=== PATIENT | female | born 1970 | race Asian ===

== ENCOUNTER 2019-07-23 18:53 | Emergency (ER) | payer MEDICAID ==
[~2019-07-23] VITALS: Ht 157.5 cm; Wt 59.0 kg
[~2019-07-23 18:53] MED LIST: HYDR25TA6 PO
[2019-07-23 19:47] LABS: ALBUMIN 3.8 g/dL (3.4-5.0); ANION GAP 5 mmol/L (5-15); CALCIUM 9.1 mg/dL (8.5-10.1); CHLORIDE 106 mmol/L (98-107)
[2019-07-23 19:49] LABS: BASOPHILS # (AUTO) 0.02 x10^3/uL (0-0.1); BASOPHILS % (AUTO) 0 % (0-1); EOSINOPHILS # (AUTO) 0.25 x10^3/uL (0-0.4); EOSINOPHILS % (AUTO) 5 % (1-7); LYMPHOCYTES # (AUTO) 1.35 x10^3/uL (1-3.4); LYMPHOCYTES % (AUTO) 25 % (22-44); MD NO; MEAN CORPUSCULAR HEMOGLOBIN 30.2 pg (27.0-34.8); MEAN CORPUSCULAR HGB CONC 32.9 g/dL (32.4-35.8); MEAN CORPUSCULAR VOLUME 91.8 fL (80-100); MEAN PLATELET VOLUME 8.4 fL (7.4-10.4); MONOCYTES # (AUTO) 0.34 x10^3/uL (0.2-0.8); MONOCYTES % (AUTO) 6 % (2-9); NEUTROPHILS # (AUTO) 3.41 x10^3/uL (1.8-6.8); NEUTROPHILS % (AUTO) 63 % (42-75); PLATELET COUNT 290 x10^3/uL (130-400); RED BLOOD COUNT 4.65 x10^6/uL (3.82-5.3); RED CELL DISTRIBUTION WIDTH 13.1 % (9.6-15.2)
[2019-07-23 19:52] LABS: ALANINE AMINOTRANSFERASE 37 U/L (12-78); ALKALINE PHOSPHATASE 71 U/L (45-117); BILIRUBIN,TOTAL 0.2 mg/dL (0.2-1.0); CREATININE 1.11 mg/dL (0.55-1.02); TOTAL PROTEIN 7.8 g/dL (6.4-8.2)
--- NOTE | 2019-07-23 22:32 | NUR ---
Pt to room at this time.
[2019-07-23] MEDS ORDERED: HYDROCHLOROTHIAZIDE 25 MG TABLET PO ONE (23:00)
[2019-07-23 23:07] VITALS: BP 111/73
== END 2019-07-23 23:49 | disposition home or self-care (01) ==
LOC: ED 19:40
DX: R10.11 Right upper quadrant pain (principal); R11.0 Nausea; Z76.0 Encounter for issue of repeat prescription
CPT/HCPCS: 36415; 80053; 83690; 85025; 93005; 99284

== ENCOUNTER 2019-11-29 16:48 | Outpatient (CLI) | payer MEDICAID | END 2019-11-29 23:59 | disposition home or self-care (01) | LOC: LAB 16:48 | PROVIDERS: ATTEND Physician Assistant | DX: Z02.9 Encounter for administrative examinations, unspecified (principal) ==

== ENCOUNTER 2020-01-05 16:09 | Emergency (ER) | payer MEDICAID ==
[~2020-01-05] VITALS: Ht 157.5 cm; Wt 60.0 kg
[2020-01-05 16:17] VITALS: BP 120/74
== END 2020-01-05 16:41 | disposition home or self-care (01) ==
LOC: ED 16:25
DX: K08.89 Other specified disorders of teeth and supporting structures (principal)
CPT/HCPCS: 99283

== ENCOUNTER 2020-02-03 14:43 | Inpatient (IN) | payer MEDICAID ==
[~2020-02-03] VITALS: Ht 157.5 cm; Wt 56.4 kg
--- NOTE | 2020-02-03 15:03 | NUR ---
SPOKE WITH MANAGER DOCUMENTATION [id number]
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
[2020-02-03] MEDS ORDERED: ASPIRIN 81 MG TABLET CHEW ONE (15:54)
[2020-02-03 15:55] LABS: BASOPHILS # (AUTO) 0.02 x10^3/uL (0-0.1); BASOPHILS % (AUTO) 0 % (0-1); EOSINOPHILS # (AUTO) 0.12 x10^3/uL (0-0.4); EOSINOPHILS % (AUTO) 2 % (1-7); LYMPHOCYTES # (AUTO) 1.39 x10^3/uL (1-3.4); LYMPHOCYTES % (AUTO) 27 % (22-44); MD NO; MEAN CORPUSCULAR HEMOGLOBIN 29.8 pg (27.0-34.8); MEAN CORPUSCULAR HGB CONC 33.5 g/dL (32.4-35.8); MEAN CORPUSCULAR VOLUME 88.9 fL (80-100); MONOCYTES # (AUTO) 0.43 x10^3/uL (0.2-0.8); MONOCYTES % (AUTO) 8 % (2-9); NEUTROPHILS # (AUTO) 3.13 x10^3/uL (1.8-6.8); NEUTROPHILS % (AUTO) 61 % (42-75); PLATELET COUNT 265 x10^3/uL (130-400); RED BLOOD COUNT 4.26 x10^6/uL (3.82-5.3); RED CELL DISTRIBUTION WIDTH 13.2 % (9.6-15.2)
[2020-02-03] MEDS ORDERED: AZITHROMYCIN 500 MG in SODIUM CHLORIDE 0.9% 250 ML IV ONE (16:00)
[2020-02-03] MEDS ORDERED: CEFTRIAXONE PMX 1GM/50ML 50 ML IVPB ONE (16:00)
[2020-02-03] MEDS ORDERED: SODIUM CHLORIDE FLUSH 10ML SYR IVF ONE (16:00)
[2020-02-03] MEDS ORDERED: ASPIRIN 81 MG TABLET CHEW PO ONE (16:00)
--- NOTE | 2020-02-03 16:03 | NUR ---
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
--- NOTE | 2020-02-03 16:03 | NUR ---
Task rn:medicated per emar (only 81mg of ASA instead of 162mg) as patient took 81mg this am
[2020-02-03 16:08] LABS: ALANINE AMINOTRANSFERASE 24 U/L (12-78); ALBUMIN 3.5 g/dL (3.4-5.0); ANION GAP 5 mmol/L (5-15); CALCIUM 8.6 mg/dL (8.5-10.1); CHLORIDE 108 mmol/L (98-107); CREATININE 1.07 mg/dL (0.55-1.02)
[2020-02-03 16:13] LABS: ALKALINE PHOSPHATASE 57 U/L (45-117); BILIRUBIN,TOTAL 0.4 mg/dL (0.2-1.0); TOTAL PROTEIN 7.1 g/dL (6.4-8.2); TROPONIN I < 0.015 ng/mL (0.000-0.045)
[2020-02-03] MEDS ORDERED: CEFTRIAXONE PMX 1GM/50ML 50 ML ONE (16:35)
[2020-02-03] MEDS ORDERED: NITROGLYCERIN 0.4 MG BOTTLE (25 TABS) SL PRN (18:30)
[2020-02-03] MEDS ORDERED: NITROGLYCERIN 0.4 MG/SPRAY SL PRN (18:30)
[2020-02-03] MEDS ORDERED: ACETAMINOPHEN 325 MG TABLET PO PRN (18:30)
[2020-02-03] MEDS ORDERED: HEPARIN 5,000 UNITS/ML, 1ML SQ SCH (18:30)
[2020-02-03] MEDS ORDERED: LABETALOL 5MG/ML, 20ML IVPush PRN (18:30)
--- NOTE | 2020-02-03 18:45 | NUR ---
REPORT RECEIVED FROM YENNI COSBY.
[2020-02-03 18:59] LABS: TROPONIN I < 0.015 ng/mL (0.000-0.045)
--- NOTE | 2020-02-03 19:14 | NUR ---
PT UP TO BATHROOM WITH STEADY GAIT. MONITORING REAPPLIED, PT DENIES COUGH OR SORE THROAT, REPORTS SOME SOB.
[2020-02-03] MEDS ORDERED: NS + 20MEQ KCL 1,000 ML IV ONE (19:42)
[2020-02-03] MEDS: NS + 20MEQ KCL 1,000 ML IV SCH (19:56)
[2020-02-03] MEDS ORDERED: CEFTRIAXONE PMX 1GM/50ML 50 ML IV SCH (20:30)
[2020-02-03] MEDS ORDERED: HEPARIN 5,000 UNITS/ML, 1ML ONE (20:32)
--- NOTE | 2020-02-03 22:53 | NUR ---
PT PROVIDED MEAL AND WATER. DENIES FURTHER NEEDS AT THIS TIME.
--- NOTE | 2020-02-04 00:51 | NUR ---
PT UP TO BATHROOM WITH STEADY GAIT. MONITORING REAPPLIED, ADDITIONAL WATER AND BLANKET PROVIDED.
[2020-02-04 00:52] LABS: TROPONIN I < 0.015 ng/mL (0.000-0.045)
--- NOTE | 2020-02-04 02:51 | NUR ---
PT RESTING ON GURNEY WITH EYES CLOSED, RESPIRATIONS EVEN AND NONLABORED. CALL LIGHT WITHIN REACH. ALL SAFETY MEASURES IN PLACE. ROOM DIMMED FOR PT COMFORT.
[2020-02-04] MEDS ORDERED: HEPARIN 5,000 UNITS/ML, 1ML ONE (05:00)
[2020-02-04] MEDS: HEPARIN 5,000 UNITS/ML, 1ML SQ SCH ×3 (05:05→22:17)
--- NOTE | 2020-02-04 05:17 | NUR ---
PT MEDICATED PER MAR, LABS DRAWN BY LAB. PT DENIES FURTHER NEEDS AT THIS TIME. MONITORING IN PLACE, PT UPDATED ON POC.
[2020-02-04 05:29] LABS: BASOPHILS # (AUTO) 0.03 x10^3/uL (0-0.1); BASOPHILS % (AUTO) 1 % (0-1); EOSINOPHILS # (AUTO) 0.18 x10^3/uL (0-0.4); EOSINOPHILS % (AUTO) 3 % (1-7); LYMPHOCYTES # (AUTO) 1.98 x10^3/uL (1-3.4); LYMPHOCYTES % (AUTO) 35 % (22-44); MD NO; MEAN CORPUSCULAR HEMOGLOBIN 29.7 pg (27.0-34.8); MEAN CORPUSCULAR HGB CONC 33.2 g/dL (32.4-35.8); MEAN CORPUSCULAR VOLUME 89.7 fL (80-100); MEAN PLATELET VOLUME 7.9 fL (7.4-10.4); MONOCYTES # (AUTO) 0.44 x10^3/uL (0.2-0.8); MONOCYTES % (AUTO) 8 % (2-9); NEUTROPHILS # (AUTO) 2.95 x10^3/uL (1.8-6.8); NEUTROPHILS % (AUTO) 53 % (42-75); PLATELET COUNT 261 x10^3/uL (130-400); RED BLOOD COUNT 4.11 x10^6/uL (3.82-5.3); RED CELL DISTRIBUTION WIDTH 13.1 % (9.6-15.2)
[2020-02-04 05:36] LABS: ANION GAP 4 mmol/L (5-15); CHLORIDE 112 mmol/L (98-107)
[2020-02-04 05:41] LABS: CHOL/HDL RATIO 5.5; CHOLESTEROL, TOTAL 155 mg/dL (140-239); CREATININE 1.03 mg/dL (0.55-1.02); HDL CHOL % 18 % (28-40); HDL CHOLESTEROL (DIRECT) 28 mg/dL (40-60); LDL CHOLESTEROL,CALCULATED 52 mg/dL (54-169); LDL/HDL RATIO 1.9 (0.5-3.0); TRIGLYCERIDES 373 mg/dL (50-200); VLDL CHOLESTEROL 75 mg/dL (0-25)
--- NOTE | 2020-02-04 06:47 | NUR ---
REPORT TO YENNI FELIPE.
--- NOTE | 2020-02-04 06:48 | NUR ---
REPORT FROM OLLIE. PT RESTING.
[2020-02-04] MEDS: PANTOPRAZOLE 40MG TABLET PO SCH (07:30)
--- NOTE | 2020-02-04 07:30 | NUR ---
PT TRANSFERRED TO HOSPITAL BED. PT AMUBLATED TO BATHROOM , BRUSHED TEETH. HAS BEEN NPO FOR JUS SCAN THIS AM. PT DENIES CP OR SOB AT THIS TIME. VSS
--- NOTE | 2020-02-04 08:08 | NUR ---
DISCUSSED W DR GRAY THAT JUS SCAN WILL MOST LIKELY BE DONE IN AFTERNOON, MD MELANIA Resendez PT EATING LIGHT BREAKFAST.
[2020-02-04] MEDS ORDERED: PANTOPRAZOLE 20MG TABLET ONE (08:12)
[2020-02-04] MEDS ORDERED: ASPIRIN 81 MG TABLET CHEW ONE (08:12)
[2020-02-04] MEDS ORDERED: AZITHROMYCIN 250 MG TABLET ONE (08:12)
[2020-02-04] MEDS ORDERED: NS + 20MEQ KCL 1,000 ML IV ONE (08:13)
[2020-02-04] MEDS: NS + 20MEQ KCL 1,000 ML IV SCH ×2 (08:41→14:25)
[2020-02-04] MEDS: ASPIRIN 81 MG TABLET CHEW PO SCH (08:42)
[2020-02-04] MEDS: AZITHROMYCIN 250 MG TABLET PO SCH (08:42)
--- NOTE | 2020-02-04 08:50 | NUR ---
SPOKE W INTEPRETER TO DISCUSS POC FOR THE DAY INCLUDING MEDICATIONS, JUS SCAN IN AFTERNOON. PT EATING MEAL TRAY.
--- NOTE | 2020-02-04 10:03 | NUR ---
PT RESTING. CALL LIGHT IN REACH.
[2020-02-04] MEDS: HYDROCHLOROTHIAZIDE 25 MG TABLET PO SCH (10:24)
--- NOTE | 2020-02-04 11:49 | NUR ---
ICU NOT READY TO RECIEVE REPORT AT THIS TIME
--- NOTE | 2020-02-04 12:39 | NUR ---
REPORT TO BRANDIN
[2020-02-04] MEDS ORDERED: REGADENOSON 0.4 MG/5 ML SYRINGE ONE (13:33)
[2020-02-04 14:33] VITALS: BP 116/70
[2020-02-04] MEDS ORDERED: OMEP-110 PO (17:13)
[2020-02-04] MEDS ORDERED: METF500T17 PO (17:13)
[2020-02-04] MEDS ORDERED: NITR0.4T28 SL (17:19)
[2020-02-04] MEDS ORDERED: FAMO20TA7 PO (17:19)
[2020-02-04] MEDS ORDERED: PROM12.57 PO (17:19)
[2020-02-04] MEDS ORDERED: POTA10TA6 PO (17:19)
[2020-02-04] MEDS ORDERED: MV-M1TAB16 PO (17:19)
[2020-02-04] MEDS ORDERED: CEFTRIAXONE PMX 1GM/50ML 50 ML IV SCH (18:00)
[2020-02-04 20:19] VITALS: BP 109/61
[2020-02-05 00:46] VITALS: BP 130/67
[2020-02-05] MEDS: HEPARIN 5,000 UNITS/ML, 1ML SQ SCH (05:59)
[2020-02-05] MEDS ORDERED: NITROGLYCERIN 0.4 MG BOTTLE (25 TABS) SL PRN (06:30)
[2020-02-05] MEDS ORDERED: NITROGLYCERIN 0.4 MG/SPRAY SL PRN (06:30)
[2020-02-05] MEDS: ASPIRIN 81 MG TABLET CHEW PO SCH (07:35)
[2020-02-05] MEDS: PANTOPRAZOLE 40MG TABLET PO SCH (07:35)
[2020-02-05] MEDS: AZITHROMYCIN 250 MG TABLET PO SCH (07:35)
[2020-02-05] MEDS: HYDROCHLOROTHIAZIDE 25 MG TABLET PO SCH (07:35)
[2020-02-05 08:19] LABS: ANION GAP 5 mmol/L (5-15); CALCIUM 8.5 mg/dL (8.5-10.1); CHLORIDE 112 mmol/L (98-107); CREATININE 0.97 mg/dL (0.55-1.02)
[2020-02-05] MEDS ORDERED: FENOFIBRATE 145 MG TABLET PO SCH (09:00)
[2020-02-05] MEDS ORDERED: POTASSIUM CHLORIDE 20 MEQ TAB.ER.PRT PO ONE (09:30)
[2020-02-05] MEDS ORDERED: AMOX1TAB64 PO (10:25)
[2020-02-05] MEDS ORDERED: FENO145T19 PO (10:25)
[2020-02-05] MEDS ORDERED: AZIT250T89 PO (10:25)
[2020-02-05] MEDS ORDERED: ATORVASTATIN 40 MG TABLET PO SCH (21:00)
== END 2020-02-05 13:26 | disposition home or self-care (01) | DRG 195 ==
LOC: ED 16:37 → EDIP 17:19 → ICU 02-04 13:49
PROVIDERS: ADMIT Family Medicine; ATTEND Hospitalist
DX: J18.9 Pneumonia, unspecified organism (principal); E11.9 Type 2 diabetes mellitus without complications; E78.1 Pure hyperglyceridemia; I10 Essential (primary) hypertension; H92.02 Otalgia, left ear; R07.2 Precordial pain; R09.89 Other specified symptoms and signs involving the circulatory and respiratory systems; Z82.49 Family history of ischemic heart disease and other diseases of the circulatory system; Z79.84 Long term (current) use of oral hypoglycemic drugs
CPT/HCPCS: 36415; 71045; 78452; 80048; 80053; 80061; 82728; 83605; 83615; 84484; 85025; 87040; 87081; 87635; 93005; 93017; G0378; J0456; J0696; J1644; J2785; J3480; A9502; J7050

== ENCOUNTER 2020-04-05 18:37 | Emergency (ER) | payer MEDICAID ==
[~2020-04-05] VITALS: Ht 157.5 cm; Wt 56.0 kg
[~2020-04-05 18:37] MED LIST changes: +AMOX1TAB64 PO; +AZIT250T89 PO; +FAMO20TA7 PO; +FENO145T19 PO; +METF500T17 PO; +MV-M1TAB16 PO; +NITR0.4T28 SL; +OMEP-110 PO; +POTA10TA6 PO; +PROM12.57 PO
--- NOTE | 2020-04-05 18:54 | NUR ---
PT TO ED WITH X1 EPISODE OF BLOOD IN STOOL TODAY, DESCRIBES DARK RED. PT DENIES N/V/D. PT PLACED ON MONITORING, CALL LIGHT WITHIN REACH, ALL SAFETY MEASURES IN PLACE.
[2020-04-05 19:36] LABS: BASOPHILS # (AUTO) 0.03 x10^3/uL (0-0.1); BASOPHILS % (AUTO) 1 % (0-1); EOSINOPHILS # (AUTO) 0.12 x10^3/uL (0-0.4); EOSINOPHILS % (AUTO) 2 % (1-7); LYMPHOCYTES # (AUTO) 1.69 x10^3/uL (1-3.4); LYMPHOCYTES % (AUTO) 34 % (22-44); MD NO; MEAN CORPUSCULAR HEMOGLOBIN 29.4 pg (27.0-34.8); MEAN CORPUSCULAR HGB CONC 33.1 g/dL (32.4-35.8); MEAN CORPUSCULAR VOLUME 88.8 fL (80-100); MEAN PLATELET VOLUME 8.2 fL (7.4-10.4); MONOCYTES # (AUTO) 0.37 x10^3/uL (0.2-0.8); MONOCYTES % (AUTO) 8 % (2-9); NEUTROPHILS % (AUTO) 56 % (42-75); PLATELET COUNT 264 x10^3/uL (130-400); RED BLOOD COUNT 4.47 x10^6/uL (3.82-5.3); RED CELL DISTRIBUTION WIDTH 12.8 % (9.6-15.2)
[2020-04-05 19:45] LABS: INTERNATIONAL NORMALIZED RATIO 0.95 (0.93-1.1); PROTHROMBIN TIME 9.8 Seconds (9.6-11.5)
[2020-04-05 19:48] LABS: ALANINE AMINOTRANSFERASE 31 U/L (12-78); ALBUMIN 3.6 g/dL (3.4-5.0); ANION GAP 8 mmol/L (5-15); CALCIUM 8.6 mg/dL (8.5-10.1); CHLORIDE 109 mmol/L (98-107); CREATININE 1.11 mg/dL (0.55-1.02)
[2020-04-05 19:51] LABS: ALKALINE PHOSPHATASE 50 U/L (45-117); BILIRUBIN,TOTAL 0.2 mg/dL (0.2-1.0); TOTAL PROTEIN 7.1 g/dL (6.4-8.2)
--- NOTE | 2020-04-05 20:00 | NUR ---
PT UPDATED ON POC. MONITORING IN PLACE, CALL LIGHT WITHIN REACH.
--- NOTE | 2020-04-05 20:59 | NUR ---
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 ALL QUESTIONS ANSWERED AT THIS TIME.
--- NOTE | 2020-04-05 21:01 | NUR ---
RECTAL EXAM PERFOMRED WITH THIS RN IN ROOM.
[2020-04-05 21:17] VITALS: BP 125/70
== END 2020-04-05 21:20 | disposition home or self-care (01) ==
LOC: ED 19:45
DX: K62.5 Hemorrhage of anus and rectum (principal); K64.4 Residual hemorrhoidal skin tags; I10 Essential (primary) hypertension; E11.9 Type 2 diabetes mellitus without complications
CPT/HCPCS: 36415; 80053; 85025; 85610; 99283

== ENCOUNTER 2020-10-08 14:39 | Emergency (ER) | payer MEDICAID ==
[~2020-10-08] VITALS: Ht 157.5 cm; Wt 59.1 kg
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
--- NOTE | 2020-10-08 15:34 | NUR ---
Pt ambulating to bathroom, equal steady gait.
--- NOTE | 2020-10-08 15:38 | NUR ---
UA collected and tubed to lab.
--- NOTE | 2020-10-08 15:46 | NUR ---
Provided pt warm blanket.
[2020-10-08] MEDS ORDERED: MAALOX/HYOSCYAMINE/LIDOCAINE 45 ML BTL PO ONE (16:00)
[2020-10-08 16:16] LABS: MICROSCOPIC INDICATED
--- NOTE | 2020-10-08 16:17 | NUR ---
Lab at bedside.
[2020-10-08] MEDS ORDERED: MAALOX/HYOSCYAMINE/LIDOCAINE 45 ML BTL ONE (16:22)
[2020-10-08 16:33] LABS: BASOPHILS % (AUTO) 1 % (0-1); EOSINOPHILS % (AUTO) 3 % (1-7); LYMPHOCYTES % (AUTO) 26 % (22-44); MD NO; MEAN CORPUSCULAR HEMOGLOBIN 29.9 pg (27.0-34.8); MEAN CORPUSCULAR HGB CONC 34.3 g/dL (32.4-35.8); MEAN PLATELET VOLUME 7.9 fL (7.4-10.4); MONOCYTES % (AUTO) 8 % (2-9); NEUTROPHILS % (AUTO) 62 % (42-75); PLATELET COUNT 265 x10^3/uL (130-400); RED BLOOD COUNT 4.69 x10^6/uL (3.82-5.3); RED CELL DISTRIBUTION WIDTH 12.9 % (9.6-15.2)
--- NOTE | 2020-10-08 16:40 | NUR ---
US at bedside.
[2020-10-08 16:44] LABS: ALANINE AMINOTRANSFERASE 36 U/L (12-78); ALBUMIN 3.5 g/dL (3.4-5.0); ANION GAP 6 mmol/L (5-15); CALCIUM 8.1 mg/dL (8.5-10.1); CHLORIDE 108 mmol/L (98-107); CREATININE 0.93 mg/dL (0.55-1.02)
[2020-10-08 16:48] LABS: ALKALINE PHOSPHATASE 65 U/L (45-117); BILIRUBIN,TOTAL 0.3 mg/dL (0.2-1.0)
[2020-10-08] MEDS ORDERED: POTASSIUM CHLORIDE 20 MEQ PACKET PO ONE (17:30)
[2020-10-08] MEDS ORDERED: POTASSIUM CHLORIDE 20 MEQ PACKET ONE (17:36)
[2020-10-08 17:41] VITALS: BP 124/74
--- NOTE | 2020-10-08 17:48 | NUR ---
Pt agrees with and understands discharge plan and instructions.
--- NOTE | 2020-10-08 18:31 | NUR ---
TASK RN: DC EDUCATION PROVIDED, PT/FRIEND DEMONSTRATE UNDERSTANDING. PT AMBULATED STEADILY TO DC WITH RN AND FRIEND. PT REQUESTING PAST MEDICAL RECORDS, GIVEN PHONE NUMBER AND INSTRUCTIONS TO CONTACT MEDICAL RECORDS DEPARTMENT.
== END 2020-10-08 18:33 | disposition home or self-care (01) ==
LOC: ED 16:26
DX: R10.11 Right upper quadrant pain (principal); E87.6 Hypokalemia; Z87.19 Personal history of other diseases of the digestive system
CPT/HCPCS: 36415; 76700; 80053; 81001; 83690; 84703; 85025; 87086; 99284

== ENCOUNTER 2020-10-13 15:23 | Emergency (ER) | payer MEDICAID ==
[~2020-10-13] VITALS: Ht 157.5 cm; Wt 59.1 kg
--- NOTE | 2020-10-13 18:06 | NUR ---
ASSISTANT DEAN: PT TO ROOM FROM RAFFY ELIZABETH. PT TO BR TO ATTEMPT TO PROVIDE URINE SPECIMAN.
--- NOTE | 2020-10-13 18:39 | NUR ---
FIRST CONTACT. PT IN ROOM. PT STATES. "I HAVE SWELLING ALL OVER AND MY BACK HURTS" PT POINTS TO RIGHT FLANK
--- NOTE | 2020-10-13 19:28 | NUR ---
PT LAYING IN BED UA IN LAB, BLOOD BEING DRAWN
[2020-10-13 19:38] LABS: BASOPHILS % (AUTO) 1 % (0-1); EOSINOPHILS % (AUTO) 2 % (1-7); LYMPHOCYTES % (AUTO) 28 % (22-44); MEAN CORPUSCULAR HEMOGLOBIN 29.8 pg (27.0-34.8); MEAN CORPUSCULAR HGB CONC 33.9 g/dL (32.4-35.8); MEAN PLATELET VOLUME 8.1 fL (7.4-10.4); MONOCYTES % (AUTO) 6 % (2-9); NEUTROPHILS % (AUTO) 63 % (42-75); PLATELET COUNT 288 x10^3/uL (130-400); RED CELL DISTRIBUTION WIDTH 13.1 % (9.6-15.2)
[2020-10-13 19:40] LABS: MD NO
[2020-10-13 19:44] LABS: MICROSCOPIC AUTO
[2020-10-13 19:50] LABS: ALANINE AMINOTRANSFERASE 44 U/L (12-78); ALBUMIN 3.6 g/dL (3.4-5.0); ANION GAP 5 mmol/L (5-15); CALCIUM 8.7 mg/dL (8.5-10.1); CHLORIDE 106 mmol/L (98-107); CREATININE 1.16 mg/dL (0.55-1.02)
[2020-10-13 19:52] LABS: AMPHETAMINE SCREEN, URINE Negative (Negative); BARBITURATE SCREEN, URINE Negative (Negative); BENZODIAZEPINE SCREEN, URINE Negative (Negative); CANNABINOID SCREEN, URINE Negative (Negative); COCAINE SCREEN, URINE Negative (Negative); METHADONE SCREEN, URINE Negative (Negative); OPIATE SCREEN, URINE Negative (Negative)
[2020-10-13 19:55] LABS: ALKALINE PHOSPHATASE 64 U/L (45-117); BILIRUBIN,TOTAL 0.2 mg/dL (0.2-1.0); TOTAL PROTEIN 7.1 g/dL (6.4-8.2)
--- NOTE | 2020-10-13 20:30 | NUR ---
PT IN BED NO DISTRESS
[2020-10-13 21:26] VITALS: BP 114/68
--- NOTE | 2020-10-13 21:50 | NUR ---
PT WALKED OUT SELF WITH RX. DISCUESSED IF S&S WORSEN RETURN TO ER
== END 2020-10-13 21:50 | disposition home or self-care (01) ==
LOC: ED 19:12
DX: N30.00 Acute cystitis without hematuria (principal); M54.5 Low back pain; I10 Essential (primary) hypertension; E11.9 Type 2 diabetes mellitus without complications
CPT/HCPCS: 36415; 80053; 80307; 81001; 83880; 84703; 85025; 87086; 93005; 99284

== ENCOUNTER 2020-11-13 10:49 | Outpatient (CLI) | payer MEDICAID ==
[2020-11-13] MEDS ORDERED: SINCALIDE (KINEVAC) 5 MCG ONE (12:28)
== END 2020-11-13 23:59 | disposition home or self-care (01) ==
LOC: RAD 10:49
PROVIDERS: ATTEND Physician Assistant
DX: D18.03 Hemangioma of intra-abdominal structures (principal); R10.11 Right upper quadrant pain; R14.0 Abdominal distension (gaseous)
CPT/HCPCS: 78227; A9537; J2805

== ENCOUNTER 2021-04-23 14:49 | Emergency (ER) | payer MEDICAID ==
[~2021-04-23] VITALS: Ht 157.5 cm; Wt 56.2 kg
[2021-04-23 14:51] VITALS: BP 134/77
== END 2021-04-23 16:14 | disposition home or self-care (01) ==
LOC: ED 15:45
DX: K08.89 Other specified disorders of teeth and supporting structures (principal); E11.9 Type 2 diabetes mellitus without complications; I10 Essential (primary) hypertension
CPT/HCPCS: 70100; 82962; 99283